=== PATIENT | female | born 1985 | race Caucasian/White ===

== ENCOUNTER 2019-04-27 00:15 | Emergency (ER) | payer BC, OTHER ==
[~2019-04-27] VITALS: Ht 154.9 cm; Wt 68.0 kg
[2019-04-27 00:42] LABS: URINE BILIRUBIN NEGATIVE (Negative); URINE BLOOD 3+ (Negative); URINE CLARITY CLOUDY; URINE COLOR YELLOW; URINE GLUCOSE-RANDOM* NEGATIVE (Negative); URINE KETONES NEGATIVE (Negative); URINE NITRITE-REFLEX NEGATIVE (Negative); URINE PROTEIN (DIPSTICK) 2+ (Negative); URINE SPECIFIC GRAVITY >= 1.030 (1.005-1.035); URINE UROBILINOGEN 0.2 E.U./dl (0.2-1.0)
[2019-04-27 00:49] LABS: URINE LEUKOCYTES-REFLEX 2+ (Negative)
[2019-04-27 00:58] LABS: SQUAMOUS 4-10 Moderate /LPF (0-3); WBC CLUMPS Few (None Seen)
[2019-04-27 00:59] LABS: CASTS None Seen /LPF (None Seen); CRYSTALS None Seen /LPF (None Seen); MUCUS 0-3 Light strn/LPF (None Seen)
[2019-04-27 01:28] LABS: ABSOLUTE NEUTROPHILS 8.6 thou/uL (1.4-8.2); BASOPHILS 0.5 % (0.0-2.0); EOSINOPHILS 4.7 % (0.0-3.0); HEMATOCRIT 40.1 % (37.0-47.0); HEMOGLOBIN 13.2 gm/dL (12.0-15.0); LYMPHOCYTES 29.1 % (24.0-44.0); MCH 28.9 pg (26.0-34.0); MCV 87.6 fL (80.0-100.0); MONOCYTES 4.4 % (1.0-8.0); PLATELET COUNT 289 thou/uL (150-400); POLYS 61.3 % (36.0-66.0); RBC 4.58 mil/uL (4.20-5.00); RDW 12.8 % (10.5-14.5); WBC 15.2 thou/uL (4.0-11.0)
[2019-04-27 01:32] LABS: CALCIUM 8.7 mg/dL (8.5-10.1); CREATININE 0.5 mg/dL (0.6-1.0); POTASSIUM 4.5 mmol/L (3.5-5.1)
[2019-04-27 01:37] LABS: ALBUMIN 4.2 g/dL (3.4-5.0); TOTAL BILIRUBIN 0.2 mg/dL (<0.1-1.0); TOTAL PROTEIN 7.6 g/dL (6.4-8.2)
[2019-04-27] MEDS ORDERED: NAPROSYN500 MG PO (02:09)
[2019-04-27] MEDS ORDERED: ZOFRAN ODT4 MG PO (02:09)
[2019-04-27] MEDS ORDERED: NORCO 5-325 TA1 EAC1 PO (02:09)
[2019-04-27 02:35] VITALS: BP 115/69
== END 2019-04-27 02:35 | disposition home or self-care (01) ==
LOC: ER 00:15
PROVIDERS: Emergency Medicine
DX: N20.0 Calculus of kidney (principal)